=== PATIENT | male | born 1985 | race Two or more races ===

== ENCOUNTER 2022-04-12 13:53 | Inpatient (IN) | payer OTHER ==
[~2022-04-12] VITALS: Ht 177.8 cm; Wt 109.1 kg
[2022-04-12 14:32] LABS: BASOPHILS % (AUTO) 0.6 % (0.0-2.0); EOSINOPHILS % (AUTO) 1.8 % (1.0-6.0); HEMATOCRIT 41.8 % (41-53); HEMOGLOBIN 13.2 g/dL (13.5-17.5); LYMPHOCYTES # (AUTO) 1.1 K/uL (1.0-4.8); LYMPHOCYTES % (AUTO) 21.2 % (22.0-44.0); MEAN CORPUSCULAR HGB CONC 31.6 G/dL (31.0-37.0); MEAN CORPUSCULAR VOLUME 76 fL (80-100); MONOCYTES # (AUTO) 0.6 K/uL (0.1-1.0); MONOCYTES % (AUTO) 10.6 % (2.0-9.0); NEUTROPHILS # (AUTO) 3.5 K/uL (1.8-7.7); NEUTROPHILS % (AUTO) 65.8 % (40.0-70.0); PLATELET COUNT (AUTO) 248 K/uL (150-450); RED BLOOD CELL COUNT(AUTO) 5.49 MIL/uL (4.50-5.90); RED CELL DISTRIBUTION WIDTH 22.9 % (11.5-14.5)
[2022-04-12 15:12] LABS: COVID AG,FIA SOURCE NASOPHARYNGEAL
[2022-04-12 15:16] LABS: ALANINE AMINOTRANSFERASE 23 U/L (12-78); ALBUMIN 3.8 g/dL (3.4-5.0); ALKALINE PHOSPHATASE 85 U/L (46-116); ANION GAP 4 mmol/L (8-16); ASPARTATE AMINOTRANSFERASE 25 U/L (15-37); BILIRUBIN,TOTAL 0.3 mg/dL (0.1-1.0); CALCIUM, TOTAL 9.2 mg/dL (8.8-10.5); CARBON DIOXIDE 30 mmol/L (22-29); CHLORIDE 104 mmol/L (98-107); CREATININE 0.78 mg/dL (0.60-1.30); GLUCOSE,RANDOM 108 mg/dL (70-110); POTASSIUM 3.6 mmol/L (3.5-5.1); SODIUM SERUM 138 mmol/L (136-145); TOTAL PROTEIN, SERUM 7.4 g/dL (6.4-8.2); UREA NITROGEN, BLOOD 11 mg/dL (7-18)
[2022-04-12 15:18] LABS: GLOMERULAR FILTR. RATE CALC > 60 mL/min (>60)
[2022-04-12] MEDS ORDERED: DOCUSATE SODIUM 100 MG CAPSULE PO PRN (16:15)
[2022-04-12] MEDS ORDERED: ALBUTEROL SULFATE HFA 90 MCG/PUFF 8 GM INHALER IH PRN (16:15)
[2022-04-12] MEDS ORDERED: CloNIDine HCL 0.1 MG TABLET PO PRN (16:15)
[2022-04-12] MEDS ORDERED: MAGNESIUM HYDROXIDE SUSPENSION 30 ML UDCUP PO PRN (16:15)
[2022-04-12] MEDS ORDERED: GuaiFENesin/D-METHORPHAN [SUGAR-FREE] 200-20MG/10 ML SYRUP UDCUP PO PRN (16:15)
[2022-04-12] MEDS ORDERED: PETROLATUM,WHITE 28 GM JELLY TP PRN (16:15)
[2022-04-12] MEDS ORDERED: NICOTINE 14 MG/24 HOUR PATCH TD PRN (16:15)
[2022-04-12] MEDS ORDERED: MAG HYDROX/AL HYDROX/SIMETH ES 30 ML SUSPENSION UDCUP PO PRN (16:15)
[2022-04-12] MEDS ORDERED: LOPERAMIDE HCL 2 MG CAPSULE PO PRN (16:15)
[2022-04-12] MEDS ORDERED: IBUPROFEN 400 MG TABLET PO PRN (16:15)
[2022-04-12] MEDS ORDERED: ACETAMINOPHEN 325 MG TABLET PO PRN (16:15)
[2022-04-12] MEDS ORDERED: ONDANSETRON HCL 4 MG TABLET PO PRN (16:15)
[2022-04-13 10:03] VITALS: BP 128/78
[2022-04-13 16:00] VITALS: BP 111/67
[2022-04-13 16:07] LABS: AMPHET/METH SCREEN,URINE POSITIVE (NEGATIVE); BARBITURATE SCREEN, URINE NEGATIVE (NEGATIVE); BENZODIAZEPINES SCREEN,URINE NEGATIVE (NEGATIVE); CANNABINOID SCREEN,URINE NEGATIVE (NEGATIVE); COCAINE SCREEN,URINE NEGATIVE (NEGATIVE); METHADONE SCREEN, URINE NEGATIVE (NEGATIVE); OPIATE SCREEN,URINE NEGATIVE (NEGATIVE); PHENCYCLIDINE SCREEN,URINE NEGATIVE (NEGATIVE)
[2022-04-13 20:03] VITALS: BP 137/82
[2022-04-14 05:00] VITALS: BP 158/86
[2022-04-14 11:42] VITALS: BP 130/82
[2022-04-14 20:20] VITALS: BP 137/80
[2022-04-14] MEDS ORDERED: ZOLPIDEM TARTRATE 5 MG TABLET PO PRN (23:15)
[2022-04-15 05:03] VITALS: BP 129/80
== END 2022-04-15 14:27 | DRG 885 ==
LOC: EMS 13:56 → 6S 04-13 09:11
PROVIDERS: ADMIT Internal Medicine; ATTEND Internal Medicine
DX: F32.2 Major depressive disorder, single episode, severe without psychotic features (principal); R45.851 Suicidal ideations; D64.9 Anemia, unspecified; Z20.822 Contact with and (suspected) exposure to COVID-19; F15.10 Other stimulant abuse, uncomplicated; S61.512A Laceration without foreign body of left wrist, initial encounter; S51.812A Laceration without foreign body of left forearm, initial encounter; F41.9 Anxiety disorder, unspecified; F43.21 Adjustment disorder with depressed mood; X78.9XXA Intentional self-harm by unspecified sharp object, initial encounter; Y93.89 Activity, other specified; Y92.89 Other specified places as the place of occurrence of the external cause; Y99.8 Other external cause status; Z79.899 Other long term (current) drug therapy; Z91.51 Personal history of suicidal behavior
CPT/HCPCS: 80053; 85025; 99285; G0480; Q0162

== ENCOUNTER 2022-04-16 16:19 | Inpatient (IN) | payer OTHER ==
[~2022-04-16] VITALS: Ht 177.8 cm; Wt 109.1 kg
[2022-04-16 19:54] LABS: COVID AG,FIA SOURCE NASAL SWAB
[2022-04-16 19:58] LABS: BASOPHILS % (AUTO) 0.8 % (0.0-2.0); EOSINOPHILS % (AUTO) 1.7 % (1.0-6.0); HEMATOCRIT 41.6 % (41-53); LYMPHOCYTES # (AUTO) 1.8 K/uL (1.0-4.8); LYMPHOCYTES % (AUTO) 35.5 % (22.0-44.0); MEAN CORPUSCULAR HGB CONC 31.3 G/dL (31.0-37.0); MEAN CORPUSCULAR VOLUME 77 fL (80-100); MONOCYTES # (AUTO) 0.5 K/uL (0.1-1.0); MONOCYTES % (AUTO) 9.7 % (2.0-9.0); NEUTROPHILS # (AUTO) 2.6 K/uL (1.8-7.7); NEUTROPHILS % (AUTO) 52.3 % (40.0-70.0); PLATELET COUNT (AUTO) 232 K/uL (150-450); RED BLOOD CELL COUNT(AUTO) 5.44 MIL/uL (4.50-5.90); RED CELL DISTRIBUTION WIDTH 22.8 % (11.5-14.5)
[2022-04-16 20:01] LABS: ANION GAP 1 mmol/L (8-16); CALCIUM, TOTAL 9.1 mg/dL (8.8-10.5); CARBON DIOXIDE 32 mmol/L (22-29); CHLORIDE 106 mmol/L (98-107); CREATININE 0.69 mg/dL (0.60-1.30); GLUCOSE,RANDOM 91 mg/dL (70-110); POTASSIUM 4.3 mmol/L (3.5-5.1); SODIUM SERUM 139 mmol/L (136-145); UREA NITROGEN, BLOOD 12 mg/dL (7-18)
[2022-04-16 20:07] LABS: ALANINE AMINOTRANSFERASE 22 U/L (12-78); ALBUMIN 3.4 g/dL (3.4-5.0); ALKALINE PHOSPHATASE 76 U/L (46-116); ASPARTATE AMINOTRANSFERASE 20 U/L (15-37); BILIRUBIN,TOTAL 0.2 mg/dL (0.1-1.0)
[2022-04-16 20:14] LABS: GLOMERULAR FILTR. RATE CALC > 60 mL/min (>60)
[2022-04-17] MEDS ORDERED: MAGNESIUM HYDROXIDE SUSPENSION 30 ML UDCUP PO PRN
[2022-04-17] MEDS ORDERED: ALBUTEROL SULFATE 2.5 MG/0.5 ML NEB SOLUTION NEB PRN
[2022-04-17] MEDS ORDERED: IPRATROPIUM BROMIDE 0.5 MG/2.5 ML NEB SOLUTION NEB PRN
[2022-04-17] MEDS ORDERED: BISACODYL 10 MG RECTAL RECTAL SUPPOSITORY PR PRN
[2022-04-17] MEDS ORDERED: ONDANSETRON HCL 4 MG/2 ML VIAL IVP PRN
[2022-04-17 01:11] VITALS: BP 114/60
[2022-04-17 07:46] VITALS: BP 107/70
[2022-04-17 08:07] LABS: AMPHET/METH SCREEN,URINE NEGATIVE (NEGATIVE); BARBITURATE SCREEN, URINE NEGATIVE (NEGATIVE); BENZODIAZEPINES SCREEN,URINE NEGATIVE (NEGATIVE); CANNABINOID SCREEN,URINE NEGATIVE (NEGATIVE); COCAINE SCREEN,URINE NEGATIVE (NEGATIVE); METHADONE SCREEN, URINE NEGATIVE (NEGATIVE); OPIATE SCREEN,URINE NEGATIVE (NEGATIVE)
[2022-04-17 08:08] LABS: PHENCYCLIDINE SCREEN,URINE NEGATIVE (NEGATIVE)
[2022-04-17] MEDS: HEPARIN SODIUM,PORCINE 5,000 UNITS/ML VIAL SQ SCH ×4 (08:27→23:49)
[2022-04-17] MEDS ORDERED: PANTOPRAZOLE SODIUM 40 MG DR TABLET PO ONE (08:45)
[2022-04-17] MEDS ORDERED: PANTOPRAZOLE SODIUM 40 MG/VIAL IVP SCH (09:00)
[2022-04-17] MEDS: PANTOPRAZOLE SODIUM 40 MG DR TABLET PO SCH (09:07)
[2022-04-17] MEDS: OLANZapine 5 MG TABLET PO SCH ×2 (10:37→20:21)
[2022-04-17 15:42] VITALS: BP 107/62
[2022-04-17 20:23] VITALS: BP 100/51
[2022-04-18 05:28] VITALS: BP 102/54
[2022-04-18] MEDS: HEPARIN SODIUM,PORCINE 5,000 UNITS/ML VIAL SQ SCH ×4 (08:00→23:44)
[2022-04-18 08:47] VITALS: BP 98/52
[2022-04-18] MEDS: OLANZapine 5 MG TABLET PO SCH ×2 (09:00→19:51)
[2022-04-18] MEDS: PANTOPRAZOLE SODIUM 40 MG DR TABLET PO SCH (09:05)
[2022-04-18] MEDS: ACETAMINOPHEN 325 MG TABLET PO PRN ×2 (15:53→19:51)
[2022-04-18 19:49] VITALS: BP 136/91
[2022-04-18] MEDS ORDERED: KETOROLAC TROMETHAMINE 15 MG/ML VIAL IVP PRN (20:45)
[2022-04-19 04:51] VITALS: BP 55/20
[2022-04-19 08:07] VITALS: BP 110/51
[2022-04-19] MEDS: PANTOPRAZOLE SODIUM 40 MG DR TABLET PO SCH (08:40)
[2022-04-19] MEDS: HEPARIN SODIUM,PORCINE 5,000 UNITS/ML VIAL SQ SCH ×3 (08:40→23:57)
[2022-04-19 15:34] VITALS: BP 117/70
[2022-04-19 19:45] VITALS: BP 127/55
[2022-04-19] MEDS: OLANZapine 5 MG TABLET PO SCH (19:51)
[2022-04-19] MEDS ORDERED: LORazepam 1 MG TABLET PO ONE (21:15)
[2022-04-19] MEDS: ZOLPIDEM TARTRATE 5 MG TABLET PO PRN (23:58)
[2022-04-20 04:05] VITALS: BP 103/59
[2022-04-20 07:37] VITALS: BP 117/68
[2022-04-20] MEDS: PANTOPRAZOLE SODIUM 40 MG DR TABLET PO SCH (08:44)
[2022-04-20] MEDS: HEPARIN SODIUM,PORCINE 5,000 UNITS/ML VIAL SQ SCH ×2 (08:44→16:29)
[2022-04-20 15:43] VITALS: BP 112/73
[2022-04-20 20:09] VITALS: BP 126/87
[2022-04-20] MEDS: OLANZapine 5 MG TABLET PO SCH (20:11)
[2022-04-20] MEDS: ZOLPIDEM TARTRATE 5 MG TABLET PO PRN (21:01)
[2022-04-21] MEDS: HEPARIN SODIUM,PORCINE 5,000 UNITS/ML VIAL SQ SCH ×2 (00:04→08:26)
[2022-04-21 05:15] VITALS: BP 135/54
[2022-04-21 08:05] VITALS: BP 104/58
[2022-04-21] MEDS: PANTOPRAZOLE SODIUM 40 MG DR TABLET PO SCH (08:27)
== END 2022-04-21 13:15 | DRG 880 ==
LOC: EMS 16:19 → 6S 04-17 00:52
PROVIDERS: ADMIT Hospitalist; ATTEND Hospitalist
DX: F41.0 Panic disorder [episodic paroxysmal anxiety] (principal); R45.851 Suicidal ideations; F29 Unspecified psychosis not due to a substance or known physiological condition; F32.A Depression, unspecified; Z20.822 Contact with and (suspected) exposure to COVID-19; Z79.899 Other long term (current) drug therapy
CPT/HCPCS: 80053; 85025; 87081; 99285; C9113; G0480; J1644; J1885

== ENCOUNTER 2023-02-27 23:32 | Inpatient (IN) | payer OTHER ==
[~2023-02-27] VITALS: Ht 177.8 cm; Wt 145.1 kg
[2023-02-28 01:28] LABS: BASOPHILS % (AUTO) 0.4 % (0.0-2.0); EOSINOPHILS % (AUTO) 2.2 % (1.0-6.0); HEMATOCRIT 39.6 % (41-53); HEMOGLOBIN 13.3 g/dL (13.5-17.5); LYMPHOCYTES # (AUTO) 1.6 K/uL (1.0-4.8); LYMPHOCYTES % (AUTO) 29.3 % (22.0-44.0); MEAN CORPUSCULAR HEMOGLOBIN 29.9 pg (26.0-34.0); MEAN CORPUSCULAR HGB CONC 33.7 G/dL (31.0-37.0); MEAN CORPUSCULAR VOLUME 89 fL (80-100); MONOCYTES # (AUTO) 0.6 K/uL (0.1-1.0); MONOCYTES % (AUTO) 10.1 % (2.0-9.0); NEUTROPHILS # (AUTO) 3.2 K/uL (1.8-7.7); PLATELET COUNT (AUTO) 164 K/uL (150-450); RED BLOOD CELL COUNT(AUTO) 4.46 MIL/uL (4.50-5.90); RED CELL DISTRIBUTION WIDTH 14.2 % (11.5-14.5)
[2023-02-28 01:39] LABS: CALCIUM, TOTAL 8.6 mg/dL (8.8-10.5); CARBON DIOXIDE 29 mmol/L (22-29); CHLORIDE 104 mmol/L (98-107); CREATININE 0.85 mg/dL (0.60-1.30); GLOMERULAR FILTR. RATE CALC > 60 mL/min (>60); GLUCOSE,RANDOM 112 mg/dL (70-110); POTASSIUM 4.5 mmol/L (3.5-5.1)
[2023-02-28 01:45] LABS: ALANINE AMINOTRANSFERASE 30 U/L (12-78); ALBUMIN 3.1 g/dL (3.4-5.0); ALKALINE PHOSPHATASE 87 U/L (46-116); ASPARTATE AMINOTRANSFERASE 28 U/L (15-37); BILIRUBIN,TOTAL 0.3 mg/dL (0.1-1.0); TOTAL PROTEIN, SERUM 6.5 g/dL (6.4-8.2)
[2023-02-28 01:56] LABS: ANION GAP 6 mmol/L (8-16); SODIUM SERUM 139 mmol/L (136-145)
[2023-02-28 03:34] VITALS: BP 103/69; PULSE 70; RESP 18; TEMP 98.4
[2023-02-28 04:33] LABS: AMPHET/METH SCREEN,URINE POSITIVE (NEGATIVE); BARBITURATE SCREEN, URINE NEGATIVE (NEGATIVE); BENZODIAZEPINES SCREEN,URINE NEGATIVE (NEGATIVE); CANNABINOID SCREEN,URINE NEGATIVE (NEGATIVE); COCAINE SCREEN,URINE NEGATIVE (NEGATIVE); METHADONE SCREEN, URINE NEGATIVE (NEGATIVE); OPIATE SCREEN,URINE NEGATIVE (NEGATIVE); PHENCYCLIDINE SCREEN,URINE NEGATIVE (NEGATIVE)
[2023-02-28 08:03] VITALS: BP 107/89; PULSE 68; RESP 18; TEMP 98.8
[2023-02-28] MEDS ORDERED: DICYCLOMINE HCL 10 MG CAPSULE PO PRN (10:30)
[2023-02-28] MEDS ORDERED: METOCLOPRAMIDE HCL 5 MG/ML 2 ML VIAL IVP PRN (10:30)
[2023-02-28] MEDS ORDERED: LOPERAMIDE HCL 2 MG CAPSULE PO PRN (10:30)
[2023-02-28] MEDS ORDERED: SODIUM CHLORIDE 0.9% 0 ML ONE (10:35)
[2023-02-28] MEDS ORDERED: MAGNESIUM SULFATE 2 GM, MVI, ADULT NO.1 WITH VIT K 10 ML, THIAMINE 100 MG, FOLIC ACID 1... IV ONE ×5 (11:00)
[2023-02-28] MEDS: LORazepam 2 MG/ML VIAL IVP PRN ×2 (11:49→20:29)
[2023-02-28 20:16] VITALS: BP 109/77; PULSE 83; RESP 20; TEMP 98.3
[2023-02-28] MEDS: TEMAZEPAM 15 MG CAPSULE PO SCH (20:29)
[2023-03-01 04:42] VITALS: BP 131/73; PULSE 70; RESP 20; TEMP 98.4
[2023-03-01 09:36] VITALS: BP 151/93; PULSE 76; RESP 18; TEMP 98.3
[2023-03-01] MEDS ORDERED: SODIUM CHLORIDE 0.9% 1,000 ML IV ONE (11:30)
[2023-03-01] MEDS: LORazepam 2 MG/ML VIAL IVP PRN (14:15)
[2023-03-01 19:35] VITALS: BP 138/76; PULSE 83; RESP 20; TEMP 98.8
[2023-03-01] MEDS: TEMAZEPAM 15 MG CAPSULE PO SCH (20:15)
[2023-03-02 04:25] VITALS: BP 121/75; PULSE 65; RESP 20; TEMP 98.4
[2023-03-02 08:21] VITALS: BP 147/75; PULSE 64; RESP 20; TEMP 98.7
[2023-03-02] MEDS ORDERED: MAGNESIUM SULFATE 2 GM, MVI, ADULT NO.1 WITH VIT K 10 ML, THIAMINE 100 MG, FOLIC ACID 1... IV ONE ×5 (14:15)
[2023-03-02] MEDS: LORazepam 2 MG/ML VIAL IVP PRN (14:26)
[2023-03-02 15:25] VITALS: BP 121/74; PULSE 66; RESP 20; TEMP 98.5
[2023-03-02 19:57] VITALS: BP 102/63; PULSE 90; RESP 20; TEMP 98.6
[2023-03-02] MEDS: TEMAZEPAM 15 MG CAPSULE PO SCH (21:17)
[2023-03-03] MEDS: LORazepam 2 MG/ML VIAL IVP PRN (04:38)
[2023-03-03 04:47] VITALS: BP 104/70; PULSE 69; RESP 20; TEMP 98
[2023-03-03 08:08] VITALS: BP 145/98; PULSE 62; RESP 19; TEMP 98.2
[2023-03-03] MEDS: HydrOXYzine HCL 25 MG TABLET PO SCH ×2 (11:26→20:27)
[2023-03-03 20:09] VITALS: BP 136/85; PULSE 64; RESP 20; TEMP 98.9
[2023-03-03] MEDS: TEMAZEPAM 15 MG CAPSULE PO SCH (20:27)
[2023-03-04 04:38] VITALS: BP 126/80; PULSE 64; RESP 20; TEMP 98.4
[2023-03-04 08:05] VITALS: BP 131/90; PULSE 56; RESP 20; TEMP 97.8
[2023-03-04] MEDS: HydrOXYzine HCL 25 MG TABLET PO SCH (08:26)
[2023-03-04] MEDS ORDERED: LOPE-232 PO (12:23)
[2023-03-04 16:21] VITALS: BP 128/85; PULSE 60; RESP 20; TEMP 98.2
== END 2023-03-04 18:00 | DRG 897 ==
LOC: EMS 23:33 → 6S 02-28 02:24
PROVIDERS: ADMIT Hospitalist; ATTEND Hospitalist
DX: F19.139 Other psychoactive substance abuse with withdrawal, unspecified (principal); Z68.42 Body mass index [BMI] 45.0-49.9, adult; R73.9 Hyperglycemia, unspecified; E66.01 Morbid (severe) obesity due to excess calories; F11.93 Opioid use, unspecified with withdrawal; D64.9 Anemia, unspecified; F41.9 Anxiety disorder, unspecified; F32.A Depression, unspecified; F10.139 Alcohol abuse with withdrawal, unspecified
CPT/HCPCS: 80053; 80307; 85025; 99285; G0480; J2060; J3411; J3475; J3490; J7030